=== PATIENT | male | born 1975 ===

== ENCOUNTER 2019-07-07 05:35 | Day surgery (SDC) | payer OTHER ==
[2019-07-07] MEDS ORDERED: DUI500 PO (17:12)
[2019-07-07] MEDS ORDERED: PERCOCET 5-3251 EACH PO (17:12)
[2019-07-07] MEDS ORDERED: ALEVE220 M1 PO (17:12)
== END 2019-07-07 22:30 ==
LOC: CIR.AMB 05:35
DX: S82.842A Displaced bimalleolar fracture of left lower leg, initial encounter for closed fracture (principal); S93.422A Sprain of deltoid ligament of left ankle, initial encounter; S90.02XA Contusion of left ankle, initial encounter